=== PATIENT | male | born 1985 | race American Indian/Alaskan Native ===

== ENCOUNTER 2016-06-10 17:47 | Emergency (ER) | payer BC, OTHER ==
[2016-06-10 18:53] VITALS: BP 125/71
[2016-06-10] MEDS ORDERED: Lidocaine/EPINEPHrine/Tetracaine Soln 5 ML Each TOP ONE (20:11)
--- NOTE | 2016-06-10 20:17 | EDM.PDOC ---
ED HPI Skin/Rash - General Chief Complaint: Skin Complaint Stated Complaint: DRAIN HOSE ON ABDOMEN HAS BOIL ON IT Time Seen by Provider: 06/10/16 20:11 Source: Reports: Patient History Limitations: Reports: No limitations - History of Present Illness INITIAL COMMENTS - FREE TEXT/NARRATIVE: This 31 yo male patient reports to the ED with an abscess on his abdomen. The patient reports he has had an abscess behind his abdominal wall for which he currently has a drain in place. The patient was seen last week in the clinic and started on Metronidazole and Moxifloxacin. The patient has noticed some reduction in the size of the erythema, but the center seems to be getting more swollen and painful. Symptom Onset Date: 05/10/16 Timing: Reports: gradual onset Location, Skin: Reports: abdomen Quality: Reports: Ache, Sharp Severity: severe Known Identified Source: no Place of Occurrence: home Sick Contact: no Associated Symptoms: Reports: no other symptoms Similar Symptoms Previously: yes Recent Medical Care: yes - Related Data Allergies Allergy/AdvReac Type Severity Reaction Status Date / Time No Known Allergies Allergy Verified 06/10/16 18:46 Home Meds: Ambulatory Orders Medication Instructions Recorded Confirmed Metronidazole [IJD: metroNIDAZOLE] 500 mg PO .EVERY 8 HOURS 06/10/16 06/10/16 Moxifloxacin HCl 400 mg PO DAILY 06/10/16 06/10/16 Past Medical History - Past Health History Medical/Surgical History: Denies Medical/Surgical History HEENT History: Reports: None Cardiovascular History: Reports: None Respiratory History: Reports: None Gastrointestinal History: Reports: None Other Gastrointestinal History: abcess ABD Genitourinary History: Reports: UTI, recurrent Other Genitourinary History: patient states that he has been having this problem off and on since feb. antibiotics work temporarily but then symptoms recurr. dysuria frequency urgency hesitancy. urine is very cloudy and has a great deal of "white stuff" in it. also states that intermittently has pain in bilateral back around area of kidneys Musculoskeletal History: Reports: None Neurological History: Reports: None Psychiatric History: Reports: None Endocrine/Metabolic History: Reports: None Hematologic History: Reports: None Immunologic History: Reports: None Oncologic (Cancer) History: Reports: None Dermatologic History: Reports: None - Infectious Disease History Infectious Disease History: Reports: Chicken pox - Past Surgical History GI Surgical History: Reports: None Social & Family History - Family History Family Medical History: Noncontributory - Tobacco Use Smoking Status *Q: Current Every Day Smoker Years of Tobacco use: 16 Packs/Tins Daily: 0.5 Used Tobacco, but Quit: No Month Tobacco Last Used: march Second Hand Smoke Exposure: Yes - Caffeine Use Caffeine Use: Reports: Soda - Alcohol Use Days Per Week of Alcohol Use: 4 Number of Drinks Per Day: 7 Total Drinks Per Week: 28 - Recreational Drug Use Recreational Drug Use: Yes Drug Use in Last 12 Months: Yes Recreational Drug Type: Reports: Marijuana/Hashish Other Recreational Drug Type: Last time pot was smoked was this am. Recreational Drug Use Frequency: Daily Recreational Drug Last Use: t-1 ED ROS GENERAL - Review of Systems Review Of Systems: ROS reveals no pertinent complaints other than HPI. ED EXAM, SKIN/RASH Exam: See Below Exam Limited By: No limitations General Appearance: alert, WD/WN, moderate distress Eye Exam: bilateral eye: EOMI, normal inspection, PERRL Ears: normal external exam, normal canal, hearing grossly normal, normal TMs Nose: normal inspection, normal mucosa, no blood Throat/Mouth: Normal inspection, Normal lips, Normal teeth, Normal gums, Normal oropharynx, Normal voice, No airway compromise Head: atraumatic, normocephalic Neck: normal inspection, supple, non-tender, full range of motion Respiratory/Chest: no respiratory distress, lungs clear, normal breath sounds, no accessory muscle use, chest non-tender Cardiovascular: normal peripheral pulses, regular rate, rhythm, no edema, no gallop, no JVD, no murmur, no rub GI/Abdominal: normal bowel sounds, no organomegaly, tender (near umbilicus with erythema) (Male) Exam: Deferred Rectal (Males) Exam: Deferred Back Exam: normal inspection, full range of motion, NT Extremities: normal inspection, normal range of motion, non-tender, no pedal edema, normal capillary refill Neurological: alert, oriented, CN II-XII intact, normal cognition, normal gait, normal reflexes, no motor/sensory deficits Psychiatric: normal affect, normal mood Skin: Warm, Intact, Erythema, Increased warmth Location, Skin: abdomen Characteristics: erythematous Associated features: warmth, tenderness, swelling, induration ED SKIN PROCEDURES - I&D Site: lower abdomen Skin prep: isopropyl alcohol (alcohol) Local anesthesia: Lidocaine: 1% plain Local anesthetic volume: 2cc Area incised with: 15 blade Drainage: purulent, bloody, large amount Probed to break up loculations: No Packed with: none Sterile dressing: adhesive dressing Complications: No Course - Vital Signs Last Recorded V/S: Last Vital Signs Temp 36.2 C 06/10/16 18:48 Pulse 68 06/10/16 18:48 Resp 16 06/10/16 18:48 BP 125/71 06/10/16 18:48 Pulse Ox 96 06/10/16 18:48 - Orders/Labs/Meds Orders: Active Orders 24 hr Category Date Time Status CULTURE BLOOD [BC] Stat Lab 06/10/16 20:25 Received CULTURE BLOOD [BC] Stat Lab 06/10/16 20:33 Received Lidocaine 1% [Xylocaine-MPF 1%] Med 06/10/16 21:21 Once 30 ml INJECT ONETIME ONE Blood Culture x2 Reflex Set [OM.PC] Stat Oth 06/10/16 20:16 Ordered Labs: Laboratory Tests 06/10/16 06/10/16 06/10/16 Range/Units 20:25 20:25 20:25 WBC 13.0 H (5.0-10.0) 10^3/uL RBC 4.44 L (4.6-6.2) 10^6/uL Hgb 15.1 (14.0-18.0) g/dL Hct 46.1 (40.0-54.0) % MCV 103.8 H (80-100) fL MCH 34.0 (27.0-34.0) pg MCHC 32.8 L (33.0-35.0) g/dL Plt Count 361 (150-450) 10^3/uL Neut % (Auto) 75.7 H (42.2-75.2) % Lymph % (Auto) 11.1 L (20.5-50.1) % [place] % (Auto) 8.9 H (2-8) % Eos % (Auto) 3.9 H (1.0-3.0) % Baso % (Auto) 0.4 (0.0-1.0) % Sodium 137 (135-145) mmol/L Potassium 4.0 (3.6-5.0) mmol/L Chloride 100 L (101-111) mmol/L Carbon Dioxide 27.0 (21.0-31.0) mmol/L Anion Gap 14.0 BUN 8 (7-18) mg/dL Creatinine 0.7 (0.6-1.3) mg/dL Est Cr Clr Drug Dosing TNP Estimated GFR (MDRD) > 60 BUN/Creatinine Ratio 11.42 Glucose 92 (74-105) mg/dL Lactic Acid 0.7 (0.5-2.2) mmol/L Calcium 8.9 (8.4-10.2) mg/dl Total Bilirubin 0.7 (0.2-1.0) mg/dL AST 23 (10-42) IU/L ALT 16 (10-60) IU/L Alkaline Phosphatase 89 (42-121) IU/L Total Protein 8.0 (6.7-8.2) g/dl Albumin 3.5 (3.2-5.5) g/dl Globulin 4.5 Albumin/Globulin Ratio 0.78 Meds: Medications Discontinued Medications Generic Name Dose Route Start Last Admin Trade Name Antonio PRN Reason Stop Dose Admin Lidocaine HCl Confirm 06/10/16 21:14 Xylocaine-Mpf 1% Administered 06/10/16 21:15 Dose 30 ml .ROUTE .STK-MED ONE Lidocaine/Tetracaine 5 ml 06/10/16 20:11 06/10/16 20:24 Let Soln TOP 06/10/16 20:12 5 ml ONETIME ONE Administration Departure - Departure Time of Disposition: 21:23 Disposition: Home, Self-Care 01 Condition: fair Clinical Impression: Abscess Instructions: Abscess Forms: ED Department Discharge Care Plan Goals: The patient was advised of the examination and lab results during the visit. The patient's abscess was incised and drained to reduce pressure. A sample of the drainage was sent to lab for further analysis. The patient was encouraged to follow-up with his primary care facility on Saturday for continued evaluation and further management. The patient was given a dose of [place] ([address]25) while in the ED. The patient was encouraged to continue on his current antibiotics as prescribed. If the patient has any additional symptoms or further concerns, the patient should either visit his primary care facility or return to the emergency department. - My Orders Last 24 Hours: My Active Orders 06/10/16 20:16 Blood Culture x2 Reflex Set [OM.PC] Stat 06/10/16 20:25 CULTURE BLOOD [BC] Stat 06/10/16 20:33 CULTURE BLOOD [BC] Stat 06/10/16 21:21 Lidocaine 1% [Xylocaine-MPF 1%] 30 ml INJECT ONETIME ONE - Assessment/Plan Last 24 Hours: My Active Orders 06/10/16 20:16 Blood Culture x2 Reflex Set [OM.PC] Stat 06/10/16 20:25 CULTURE BLOOD [BC] Stat 06/10/16 20:33 CULTURE BLOOD [BC] Stat 06/10/16 21:21 Lidocaine 1% [Xylocaine-MPF 1%] 30 ml INJECT ONETIME ONE
[2016-06-10 21:08] LABS: CHLORIDE,CL 100 mmol/L (101-111); SODIUM,NA 137 mmol/L (135-145)
[2016-06-10] MEDS ORDERED: Lidocaine 1% 30 ML SDV ONE (21:14)
[2016-06-10] MEDS ORDERED: Lidocaine 1% 30 ML SDV INJECT ONE (21:21)
[2016-06-10] MEDS ORDERED: Acetaminophen/HYDROcodone 325-10 MG Tab PO ONE (21:23)
== END 2016-06-10 21:35 | disposition home or self-care (01) ==
LOC: DL.ED 17:47
DX: L02.211 Cutaneous abscess of abdominal wall (principal); Z87.440 Personal history of urinary (tract) infections; F17.210 Nicotine dependence, cigarettes, uncomplicated
CPT/HCPCS: 10060; 36415; 80053; 83605; 85025; 87040; 87070; 99284; A9270

== ENCOUNTER 2016-11-21 08:04 | Day surgery (SDC) | payer BC, OTHER ==
[2016-11-21] MEDS ORDERED: fentaNYL 100 MCG/2 ML SDV IV ONE (08:05)
[2016-11-21] MEDS ORDERED: Lidocaine 1% 30 ML SDV INJECT ONE ×2 (08:05→10:23)
[2016-11-21] MEDS ORDERED: Midazolam 1 MG/ML 2 ML SDV IV ONE (08:05)
[2016-11-21] MEDS ORDERED: Propofol 200 MG/20 ML SDV IV ONE (08:05)
[2016-11-21] MEDS ORDERED: Lactated Ringers 1,000 ML IV SCH (08:45)
[2016-11-21] MEDS ORDERED: Lidocaine 1% 30 ML SDV ONE (09:18)
--- NOTE | 2016-11-21 10:06 | PCM.SN ---
- Free Text/Narrative Note: 11/21/16 1000 preop patients history and physical reviewed along with allergies and medications no history of complications with anesthesia heart regular rhythm lungs clear smoker npo 8 hrs mallampati 2 asa 1 plan local with iv sedation this along with risks goals alternatives explained to patient and accepted
--- NOTE | 2016-11-21 11:14 | PCM.SN ---
- Free Text/Narrative Note: 11/21/16 1115 postop patient recovered well from iv sedation eating drinking no complaints or apparent complications with anesthesia
[2016-11-21 12:28] VITALS: BP 131/77
--- NOTE | 2016-11-21 15:03 | OR ---
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 He has a chronic draining wound in the lower portion of his lower abdominal incision, and CT scan shows a large collection of fluid most consistent with abscess. He has elevated white blood cell count to 12,000. PREOPERATIVE DIAGNOSES: Wound infection, abdominal subcutaneous abscess. POSTOPERATIVE DIAGNOSES: Wound infection, abdominal subcutaneous abscess PROCEDURE: Incision and drainage of subcutaneous abdominal wound. ANESTHESIA: Local plus MAC. SPECIMEN: Cultures for anaerobic and aerobic. PROCEDURE: After adequate preparation, lidocaine was used to infiltrate the lower portion of the abdominal incision below the umbilicus. The skin was opened and taken down through the subcutaneous tissue. Then was able to pop into a fluid collection. It appeared to be somewhat murky, but not purulent abscess. Cultures of the cavity were taken, and the wound was packed with a two dry 4 x 4 gauze pads. The wound was left open and will change the packing and let this heal by secondary intention. Cultures are pending. The patient was taken to recovery room. [facility] /[id number]
== END 2016-11-21 11:40 | disposition home or self-care (01) ==
LOC: DL.SDS 08:04 → EDSTATUS 09:30 → DL.SDS 11:40
PROVIDERS: ATTEND Surgery
DX: L02.211 Cutaneous abscess of abdominal wall (principal); F17.200 Nicotine dependence, unspecified, uncomplicated; Z90.49 Acquired absence of other specified parts of digestive tract
CPT/HCPCS: 10060; 87070; 87075; J2250; J2704; J3010; J7120

== ENCOUNTER 2021-01-09 19:42 | Observation (INO) | payer MEDICAID, OTHER ==
--- NOTE | 2021-01-09 20:03 | EDM.PDOC ---
ED HPI GENERAL MEDICAL PROBLEM - General Stated Complaint: DIZZY SPELLS, TROUBLE STANDING Time Seen by Provider: 01/09/21 19:55 Source of Information: Reports: Patient, Old Records, RN, RN Notes Reviewed History Limitations: Reports: No Limitations - History of Present Illness INITIAL COMMENTS - FREE TEXT/NARRATIVE: Alejandro is a 35 y/o male who presents to the ED via personal vehicle with complaints of dizziness, vomiting, and shortness of breath. The patient reports his symptoms began four days ago and have waxes and waned in severity over that time. The patient states he notes the dizziness is most prominent with gross position changes, however he has experienced some episodes while up walking. He denies loss of consciousness and has not fallen/struck his head. He denies any recent illness, fever, shaking chills, cough, sore throat, chest pain/pressure, palpitations, abdominal pain, dyspepsia, dysuria, hematuria, hematochezia, or melena. He attest to drinking one pint of Fireball liquor 3-4x per week, smokes 1/2 pack of cigarettes per day, and smokes marijuana every day. The patient has received two COVID vaccine doses. - Related Data Allergies Allergy/AdvReac Type Severity Reaction Status Date / Time No Known Allergies Allergy Verified 01/09/21 19:57 Home Meds: Home Meds . [No Known Home Meds] 11/05/17 [History] Past Medical History - Past Health History Medical/Surgical History: Denies Medical/Surgical History HEENT History: Reports: None Cardiovascular History: Reports: None Respiratory History: Reports: None Gastrointestinal History: Reports: Diverticulosis, Other (See Below) Other Gastrointestinal History: abcess ABD. S/P DIVERTICULITIS Genitourinary History: Reports: UTI, Recurrent Other Genitourinary History: patient states that he has been having this problem off and on since feb. antibiotics work temporarily but then symptoms recurr. dysuria frequency urgency hesitancy. urine is very cloudy and has a great deal of "white stuff" in it. also states that intermittently has pain in bilateral back around area of kidneys Musculoskeletal History: Reports: None Neurological History: Reports: None Psychiatric History: Reports: None Endocrine/Metabolic History: Reports: None Hematologic History: Reports: None Immunologic History: Reports: None Oncologic (Cancer) History: Reports: None Dermatologic History: Reports: Other (See Below) Other Dermatologic History: drng wound at present - Infectious Disease History Infectious Disease History: Reports: Chicken Pox - Past Surgical History HEENT Surgical History: Reports: None Respiratory Surgical History: Reports: None GI Surgical History: Reports: None, Other (See Below) Other GI Surgeries/Procedures: S/P COLECTOMY FOR DIVERTICULITIS @ [facility] Other Male Surgeries/Procedures: S/P CYSTOURETHROSCOPY 06/2016 Musculoskeletal Surgical History: Reports: Other (See Below) Other Musculoskeletal Surgeries/Procedures:: left wrist fracture Social & Family History - Family History Family Medical History: No Pertinent Family History - Caffeine Use Caffeine Use: Reports: Soda ED ROS GENERAL - Review of Systems Review Of Systems: Comprehensive ROS is negative, except as noted in HPI. ED EXAM, GENERAL - Physical Exam Exam: See Below Exam Limited By: No Limitations General Appearance: Alert, No Apparent Distress, Other (Ill-appearing adult male) Eye Exam: Bilateral Eye: EOMI, Normal Inspection, PERRL (3mm) Ear Exam: Bilateral Ear: Auricle Normal, Canal Normal, TM Dull Nose: Normal Inspection, Normal Mucosa, No Blood Throat/Mouth: Normal Inspection, Normal Oropharynx, Normal Voice, No Airway Compromise. No: Normal Teeth (Poor dentition) Head: Atraumatic, Normocephalic Neck: Normal Inspection, Supple, Non-Tender, Full Range of Motion. No: Lymphadenopathy (L), Lymphadenopathy (R) Respiratory/Chest: No Respiratory Distress, No Accessory Muscle Use, Rhonchi (Diffuse to lungs). No: Crackles, Rales, Wheezing, Stridor Cardiovascular: Normal Peripheral Pulses, Regular Rate, Rhythm, No Edema, No Gallop, No JVD, No Murmur, No Rub Peripheral Pulses: 2+: Radial (L), Radial (R) GI/Abdominal: Normal Bowel Sounds, Soft, Non-Tender, No Distention, No Abnormal Bruit, Pelvis Stable, Hernia (Umbilical) (Male) Exam: Deferred Rectal (Males) Exam: Deferred Back Exam: Normal Inspection, Full Range of Motion Extremities: Normal Inspection, Normal Range of Motion, Non-Tender, No Pedal Edema, Normal Capillary Refill Neurological: Alert, Oriented, CN II-XII Intact, Normal Cognition, Normal Gait, No Motor/Sensory Deficits Psychiatric: Normal Affect, Normal Mood Skin Exam: Warm, Dry, Intact, No Rash, Pallor. No: Cyanosis, Jaundice, Mottled #1 Interpretation EKG Date: 01/09/21 Time: 19:50 Rhythm: NSR Rate (Beats/Min): 91 [place]: Normal P-Wave: Present QRS: Normal ST-T: Normal QT: Normal IN/PQ Interval: 0.13 Comparison: NA - No Prior EKG EKG Interpretation Comments: NSR; No evidence of acute myocardial ischemia Course - Vital Signs Last Recorded V/S: Last Vital Signs Temp 98.8 F 01/09/21 22:41 Pulse 74 01/09/21 22:41 Resp 16 01/09/21 22:41 BP 107/57 L 01/09/21 22:41 Pulse Ox 98 01/09/21 19:57 - Orders/Labs/Meds Orders: Active Orders 24 hr Category Date Time Status Admission Diagnosis [ADT] Stat ADT 01/09/21 22:56 Ordered Admission Status [Patient Status] [ADT] Routine ADT 01/09/21 22:56 Active Verify Patient Consent Obtain [RC] ASDIRECTED Care 01/09/21 20:59 Active DRUG SCREEN URINE BIORAD [URCHEM] Urgent Lab 01/09/21 19:54 Ordered RED BLOOD CELLS LP [BBK] Stat Lab 01/09/21 20:05 Results TYPE AND SCREEN [BBK] Stat Lab 01/09/21 20:05 Results UA RFX FRANCES AND CULT IF INDIC [URIN] Stat Lab 01/09/21 19:54 Ordered Magnesium Sulfate/Water [Magnesium Sulfate in Water 2 Med 01/09/21 21:21 Active GM/50 ML] 2 gm Premix Bag 1 bag IV ONETIME Transfuse Red Blood Cells [COMM] Stat Oth 01/09/21 20:59 Ordered Medication Orders Magnesium Sulfate 2 gm/ Premix 50 mls @ 25 mls/hr IV ONETIME ONE Stop: 01/09/21 23:20 Last Admin: 01/09/21 22:03 Dose: 25 mls/hr Documented by: VIPUL Labs: Laboratory Tests 01/09/21 01/09/21 01/09/21 Range/Units 19:57 20:05 20:05 WBC 8.5 (5.0-10.0) 10^3/uL RBC 1.49 L (4.6-6.2) 10^6/uL Hgb 6.0 L* D (14.0-18.0) g/dL Hct 17.8 L* (40.0-54.0) % MCV 119.5 H D (80-100) fL MCH 40.3 H (27.0-34.0) pg MCHC 33.7 (33.0-35.0) g/dL Plt Count 325 (150-450) 10^3/uL Neut % (Auto) 74.6 (42.2-75.2) % Lymph % (Auto) 17.5 L (20.5-50.1) % [place] % (Auto) 4.7 (2-8) % Eos % (Auto) 2.6 (1.0-3.0) % Baso % (Auto) 0.6 (0.0-1.0) % Sodium 139 (136-145) mmol/L Potassium 3.9 (3.5-5.1) mmol/L Chloride 101 (98-107) mmol/L Carbon Dioxide 27 (21-32) mmol/L Anion Gap 14.9 H (7-13) mEq/L BUN 10 (7-18) mg/dL Creatinine 0.95 (0.70-1.30) mg/dL Est Cr Clr Drug Dosing 128.48 mL/min Estimated GFR (MDRD) > 60 BUN/Creatinine Ratio 10.5 (No establ ref range) Glucose 119 H (70-99) mg/dL Lactic Acid (0.4-2.0) mmol/L Calcium 8.7 (8.5-10.1) mg/dL Magnesium 1.5 L (1.8-2.4) mg/dL Total Bilirubin 1.5 H (0.2-1.0) mg/dL AST 79 H (15-37) U/L ALT 52 (16-63) U/L Alkaline Phosphatase 78 (46-116) U/L Ammonia (11-32) umol/L Troponin I High Sens 6 (<=76) pg/mL C-Reactive Protein 2.9 H (0.0-0.9) mg/dL B-Natriuretic Peptide 111 H (0-100) pg/ml Total Protein 7.4 (6.4-8.2) g/dL Albumin 3.3 L (3.4-5.0) g/dL Globulin 4.1 Albumin/Globulin Ratio 0.80 Amylase 34 (25-115) U/L Lipase 131 (73-393) U/L Ethyl Alcohol < 3 (0) mg/dL Influenza Type A RNA Negative (NEGATIVE) Influenza Type B RNA Negative (NEGATIVE) SARS-CoV-2 RNA (JEN) Negative (NEGATIVE) Blood Type Gel Antibody Screen Crossmatch 01/09/21 01/09/21 01/09/21 Range/Units 20:05 20:05 20:05 WBC (5.0-10.0) 10^3/uL RBC (4.6-6.2) 10^6/uL Hgb (14.0-18.0) g/dL Hct (40.0-54.0) % MCV (80-100) fL MCH (27.0-34.0) pg MCHC (33.0-35.0) g/dL Plt Count (150-450) 10^3/uL Neut % (Auto) (42.2-75.2) % Lymph % (Auto) (20.5-50.1) % [place] % (Auto) (2-8) % Eos % (Auto) (1.0-3.0) % Baso % (Auto) (0.0-1.0) % Sodium (136-145) mmol/L Potassium (3.5-5.1) mmol/L Chloride (98-107) mmol/L Carbon Dioxide (21-32) mmol/L Anion Gap (7-13) mEq/L BUN (7-18) mg/dL Creatinine (0.70-1.30) mg/dL Est Cr Clr Drug Dosing mL/min Estimated GFR (MDRD) BUN/Creatinine Ratio (No establ ref range) Glucose (70-99) mg/dL Lactic Acid 1.9 (0.4-2.0) mmol/L Calcium (8.5-10.1) mg/dL Magnesium (1.8-2.4) mg/dL Total Bilirubin (0.2-1.0) mg/dL AST (15-37) U/L ALT (16-63) U/L Alkaline Phosphatase (46-116) U/L Ammonia 18 (11-32) umol/L Troponin I High Sens (<=76) pg/mL C-Reactive Protein (0.0-0.9) mg/dL B-Natriuretic Peptide (0-100) pg/ml Total Protein (6.4-8.2) g/dL Albumin (3.4-5.0) g/dL Globulin Albumin/Globulin Ratio Amylase (25-115) U/L Lipase (73-393) U/L Ethyl Alcohol (0) mg/dL Influenza Type A RNA (NEGATIVE) Influenza Type B RNA (NEGATIVE) SARS-CoV-2 RNA (JEN) (NEGATIVE) Blood Type O POSITIVE Gel Antibody Screen Negative Crossmatch See Detail Meds: Medications Generic Name Dose Route Start Last Admin Trade Name Freq PRN Reason Stop Dose Admin Magnesium Sulfate 2 gm/ Premix 50 mls @ 25 mls/hr 01/09/21 21:21 01/09/21 22:03 IV 01/09/21 23:20 25 mls/hr ONETIME ONE Administration Discontinued Medications Generic Name Dose Route Start Last Admin Trade Name Freq PRN Reason Stop Dose Admin Iopamidol 50 ml 01/09/21 21:07 01/09/21 21:22 Iopamidol 612 Mg/Ml 50 Ml Sdv IVPUSH 01/09/21 21:08 25 ml ONETIME ONE Administration Iopamidol 100 ml 01/09/21 21:07 01/09/21 21:22 Iopamidol 612 Mg/Ml 100 Ml Bottle IVPUSH 01/09/21 21:08 100 ml ONETIME ONE Administration - Re-Assessments/Exams Free Text/Narrative Re-Assessment/Exam: 01/09/21 23:18 Given low Hgb, will obtain CT chest/abdomen/pelvis Findings of examination and lab work reviewed with patient. Discussed regrading need for transfusion; patient verbalized understanding and consent. Type and screen obtained. Will transfuse 2 units PRBCs. Findings of imaging reviewed with patient. Hemeoccult negative. Case discussed with Dr. Myers who kindly accepted patient for observation for anemia. Patient verbalized understanding and agreement with the plan of care. Departure - Departure Time of Disposition: 23:17 Disposition: Refer to Observation Condition: Fair Clinical Impression: Macrocytic anemia, Hypomagnesemia, Bronchitis - Discharge Information Forms: ED Department Discharge Sepsis Event Note (ED) - Focused Exam Vital Signs: Vital Signs Temp Temp Pulse Resp BP Pulse Ox 01/09/21 22:41 98.8 F 74 16 107/57 L 01/09/21 22:25 99.1 F 16 120/67 01/09/21 22:12 99.1 F 85 16 112/65 01/09/21 20:45 99.3 F 73 16 106/64 01/09/21 20:10 117 H 100/60 01/09/21 20:08 86 112/65 01/09/21 20:06 94 120/69 01/09/21 19:57 98.1 F 96 16 121/79 98 - My Orders Last 24 Hours: My Active Orders 01/09/21 19:54 DRUG SCREEN URINE BIORAD [URCHEM] Urgent UA RFX FRANCES AND CULT IF INDIC [URIN] Stat 01/09/21 20:05 RED BLOOD CELLS LP [BBK] Stat TYPE AND SCREEN [BBK] Stat 01/09/21 20:59 Verify Patient Consent Obtain [RC] ASDIRECTED Transfuse Red Blood Cells [COMM] Stat 01/09/21 21:21 Magnesium Sulfate/Water [Magnesium Sulfate in Water 2 GM/50 ML] 2 gm Premix Bag 1 bag IV ONETIME 01/09/21 22:56 Admission Diagnosis [ADT] Stat Admission Status [Patient Status] [ADT] Routine - Assessment/Plan Last 24 Hours: My Active Orders 01/09/21 19:54 DRUG SCREEN URINE BIORAD [URCHEM] Urgent UA RFX FRANCES AND CULT IF INDIC [URIN] Stat 01/09/21 20:05 RED BLOOD CELLS LP [BBK] Stat TYPE AND SCREEN [BBK] Stat 01/09/21 20:59 Verify Patient Consent Obtain [RC] ASDIRECTED Transfuse Red Blood Cells [COMM] Stat 01/09/21 21:21 Magnesium Sulfate/Water [Magnesium Sulfate in Water 2 GM/50 ML] 2 gm Premix Bag 1 bag IV ONETIME 01/09/21 22:56 Admission Diagnosis [ADT] Stat Admission Status [Patient Status] [ADT] Routine
[2021-01-09 20:36] LABS: ANION GAP 14.9 mEq/L (7-13); CHLORIDE,CL 101 mmol/L (98-107); SODIUM,NA 139 mmol/L (136-145)
[2021-01-09 20:37] LABS: CORONAVIRUS COVID-19 NAA NEGATIVE (NEGATIVE)
[2021-01-09] MEDS ORDERED: Iopamidol 612 MG/ML 100 ML Bottle IVPUSH ONE (21:07)
[2021-01-09] MEDS ORDERED: Iopamidol 612 MG/ML 50 ML SDV IVPUSH ONE (21:07)
[2021-01-09] MEDS ORDERED: Magnesium Sulfate/Water 2 GM in Premix Bag 1 BAG IV ONE (21:21)
--- NOTE | 2021-01-09 22:00 | CT ---
PROCEDURE INFORMATION: Exam: CT Chest With Contrast; Diagnostic Exam date and time: 01/09/2021 9:08 PM Age: 35 years old Clinical indication: Other: Hgb 6; Ronchi diffuse to lung muhammad, dizzy; Prior surgery; Surgery date: 6+ months; Surgery type: Colon surgery 4 years ago, diverticulitis TECHNIQUE: Imaging protocol: Diagnostic computed tomography of the chest with contrast. Total images: 371 Radiation optimization: All CT scans at this facility use at least one of these dose optimization techniques: automated exposure control; mA and/or kV adjustment per patient size (includes targeted exams where dose is matched to clinical indication); or iterative reconstruction. Contrast material: ISOVUE 300; Contrast volume: 125 ml; Contrast route: INTRAVENOUS (IV); COMPARISON: CT Abdomen Pelvis w Cont 11/20/2016 10:03 AM FINDINGS: Thyroid: The visualized thyroid gland is unremarkable. Lungs: Mild bilateral bronchial wall thickening suggesting an element of bronchitis or bronchial edema, with no evidence of bronchiectasis or bronchial occlusions. No pulmonary mass lesions are identified. Pleural spaces: No pleural effusions. No pneumothorax. Heart: Heart size normal. Mediastinal space: The esophagus is largely contracted without gross abnormality. Pulmonary arteries: The pulmonary arteries demonstrate no gross abnormality. Aorta: The aorta is unremarkable. No mediastinal hematoma. Lymph nodes: No supraclavicular or axillary adenopathy. No mediastinal or hilar adenopathy. Bones/joints: No acute osseous abnormalities are identified. Soft tissues: Mild bilateral symmetrical gynecomastia noted. Other findings: No infiltrates or edema. IMPRESSION: 1. Mild bilateral bronchial wall thickening suggesting an element of bronchitis or bronchial edema. No gross pulmonary infiltrates or edema pattern. 2. Mild bilateral symmetrical gynecomastia noted. PROCEDURE INFORMATION: Exam: CT Abdomen And Pelvis With Contrast Exam date and time: 01/09/2021 9:08 PM Age: 35 years old Clinical indication: Other: Hgb 6; Ronchi diffuse to lung muhammad, dizzy; Prior surgery; Surgery date: 6+ months; Surgery type: Colon surgery 4 years ago, diverticulitis TECHNIQUE: Imaging protocol: Computed tomography of the abdomen and pelvis with contrast. Radiation optimization: All CT scans at this facility use at least one of these dose optimization techniques: automated exposure control; mA and/or kV adjustment per patient size (includes targeted exams where dose is matched to clinical indication); or iterative reconstruction. Contrast material: ISOVUE 300; Contrast volume: 125 ml; Contrast route: INTRAVENOUS (IV); COMPARISON: CT Abdomen Pelvis w Cont 11/20/2016 10:03 AM FINDINGS: Mediastinal space: The visualized distal esophagus is largely contracted without gross abnormality. Liver: Slightly irregular liver contour, possible early changes of cirrhosis. Borderline hepatomegaly measuring 19 cm craniocaudal. No mass lesions. No intrahepatic biliary ductal dilatation. Gallbladder and bile ducts: Normal. No calcified stones. No ductal dilation. Pancreas: Normal. No inflammatory changes or ductal dilation. Spleen: Moderate splenomegaly measuring 16.9 cm craniocaudal. No focal splenic lesions. Adrenal glands: Normal. No adrenal mass. Kidneys and ureters: No acute abnormalities. No hydronephrosis or hydroureter. No urinary tract stones are identified. Stomach and bowel: The stomach is largely contracted without gross abnormality. The small bowel is nondilated with no gross abnormality. Sigmoid anastomosis without gross anastomotic complication. No acute colonic abnormalities. Appendix: The appendix is normal in caliber and demonstrates no evidence of appendicitis. Intraperitoneal space: No free fluid or air. Vasculature: No acute process. No abdominal aortic aneurysm. Mild dilatation of the main portal vein measuring 17 mm diameter. Lymph nodes: Slightly enlarged celiac node measuring 11 mm short axis. Slightly enlarged portacaval node measuring 15 mm short axis. These are nonspecific. Urinary bladder: Urinary bladder it is largely contracted. There is moderate perivesicular stranding suspicious for possible cystitis, correlate with UA. Reproductive: Prostate is unremarkable. There is mild haziness around the seminal vesicles, possibly reactive changes due to nearby cystitis or an element of seminal vesiculitis. No abscess. Bones/joints: No acute osseous abnormalities. Soft tissues: Moderate-sized anterior abdominal wall fatty hernia which is new since 11/20/2016, with the midline fascial defect measuring about 3.5 cm transverse on series 2, image 76. No evidence of bowel herniation or strangulation. IMPRESSION: 1. Bladder wall thickening with moderate perivesicular stranding suspicious for cystitis, correlate with UA. There is also mild haziness around the seminal vesicles which may represent reactive local changes from cystitis, or possibly an element of seminal vesiculitis. No abscess. 2. Question mild liver contour irregularity suspicious for early changes of cirrhosis. Borderline hepatomegaly. 3. Moderate splenomegaly and mild dilatation of the main portal vein suspicious for portal hypertension. No gross portosystemic shunting. 4. Anterior abdominal wall fatty hernia without evidence of bowel herniation or strangulation. 5. Slightly enlarged celiac and portacaval nodes, nonspecific. 6. Additional nonemergent findings detailed above.
--- NOTE | 2021-01-09 23:54 | PCM.HP ---
H&P History of Present Illness - General Date of Service: 01/09/21 Admit Problem/Dx: Admission Diagnosis/Problem Admission Diagnosis/Problem Anemia Source of Information: Patient - History of Present Illness Initial Comments - Free Text/Narative: 35 yo with h/o major abdominal surgery following diverticulitis with bladder fistula presented with weakness, lightheadedness for 5 days duration, worse when gettingup, better with rest, associatd with sob, near syncope has h/o "heartburn" taking rollaids prn for years no black/bloody/white BM had bilious vomit x 1, no bloody, black vomitus no fever, no chills - Related Data Allergies/Adverse Reactions: Allergies Allergy/AdvReac Type Severity Reaction Status Date / Time No Known Allergies Allergy Verified 01/09/21 23:28 Home Medications: Home Meds . [No Known Home Meds] 11/05/17 [History] Past Medical History - Past Health History Medical/Surgical History: Denies Medical/Surgical History HEENT History: Reports: None Cardiovascular History: Reports: None Respiratory History: Reports: None Gastrointestinal History: Reports: Diverticulosis, Other (See Below) Other Gastrointestinal History: abcess ABD. S/P DIVERTICULITIS Genitourinary History: Reports: UTI, Recurrent Other Genitourinary History: patient states that he has been having this problem off and on since feb. antibiotics work temporarily but then symptoms recurr. dysuria frequency urgency hesitancy. urine is very cloudy and has a great deal of "white stuff" in it. also states that intermittently has pain in bilateral back around area of kidneys Musculoskeletal History: Reports: None Neurological History: Reports: None Psychiatric History: Reports: None Endocrine/Metabolic History: Reports: None Hematologic History: Reports: None Immunologic History: Reports: None Oncologic (Cancer) History: Reports: None Dermatologic History: Reports: Other (See Below) Other Dermatologic History: drng wound at present - Infectious Disease History Infectious Disease History: Reports: Chicken Pox - Past Surgical History HEENT Surgical History: Reports: None Respiratory Surgical History: Reports: None GI Surgical History: Reports: None, Other (See Below) Other GI Surgeries/Procedures: S/P COLECTOMY FOR DIVERTICULITIS @ [facility] Other Male Surgeries/Procedures: S/P CYSTOURETHROSCOPY 06/2016 Musculoskeletal Surgical History: Reports: Other (See Below) Other Musculoskeletal Surgeries/Procedures:: left wrist fracture Social & Family History - Family History Family Medical History: No Pertinent Family History - Tobacco Use Tobacco Use Status *Q: Current Every Day Tobacco User Years of Tobacco use: 20 Packs/Tins Daily: 0.5 Used Tobacco, but Quit: No Second Hand Smoke Exposure: No - Caffeine Use Caffeine Use: Reports: None - Alcohol Use Days Per Week of Alcohol Use: 4 Number of Drinks Per Day: 7 Total Drinks Per Week: 28 Date of Last Drink: 01/06/21 Time of Last Drink: 20:00 - Recreational Drug Use Recreational Drug Use: Yes Drug Use in Last 12 Months: Yes Recreational Drug Type: Reports: Marijuana/Hashish Recreational Drug Use Frequency: Daily H&P Review of Systems - Review of Systems: Review Of Systems: See Below General: Reports: Malaise, Weakness. Denies: Fever Pulmonary: Reports: Shortness of Breath. Denies: Wheezing Cardiovascular: Reports: Dyspnea on Exertion, Other (near syncope, lightheadedness). Denies: Chest Pain Gastrointestinal: Reports: Other ("HEARTBURN") Genitourinary: Denies: Dysuria Psychiatric: Denies: Confusion Neurological: Reports: Dizziness Hematologic/Lymphatic: Reports: Anemia Exam - Exam Exam: See Below - Vital Signs Vital Signs: Last Vital Signs Temp 98.7 F 01/09/21 23:23 Pulse 72 01/09/21 23:23 Resp 20 01/09/21 23:23 BP 136/63 01/09/21 23:23 Pulse Ox 100 01/09/21 23:23 Weight: 270 lb 3.2 oz - Exam General: Alert, Oriented Neck: Supple Lungs: Clear to Auscultation, Normal Respiratory Effort Cardiovascular: Regular Rate, Regular Rhythm GI/Abdominal Exam: Normal Bowel Sounds, Soft, Non-Tender, Other (obese) Extremities: No Pedal Edema Neuro Extensive - Mental Status: Alert, Oriented x3, Normal Mood/Affect Psychiatric: Alert, Normal Affect, Normal Mood - Patient Data Lab Results Last 24 hrs: Laboratory Results - last 24 hr 01/09/21 01/09/21 01/09/21 Range/Units 19:57 20:05 20:05 WBC 8.5 (5.0-10.0) 10^3/uL RBC 1.49 L (4.6-6.2) 10^6/uL Hgb 6.0 L* D (14.0-18.0) g/dL Hct 17.8 L* (40.0-54.0) % MCV 119.5 H D (80-100) fL MCH 40.3 H (27.0-34.0) pg MCHC 33.7 (33.0-35.0) g/dL Plt Count 325 (150-450) 10^3/uL Neut % (Auto) 74.6 (42.2-75.2) % Lymph % (Auto) 17.5 L (20.5-50.1) % Navarro % (Auto) 4.7 (2-8) % Eos % (Auto) 2.6 (1.0-3.0) % Baso % (Auto) 0.6 (0.0-1.0) % Sodium 139 (136-145) mmol/L Potassium 3.9 (3.5-5.1) mmol/L Chloride 101 (98-107) mmol/L Carbon Dioxide 27 (21-32) mmol/L Anion Gap 14.9 H (7-13) mEq/L BUN 10 (7-18) mg/dL Creatinine 0.95 (0.70-1.30) mg/dL Est Cr Clr Drug Dosing 128.48 mL/min Estimated GFR (MDRD) > 60 BUN/Creatinine Ratio 10.5 (No establ ref range) Glucose 119 H (70-99) mg/dL Lactic Acid (0.4-2.0) mmol/L Calcium 8.7 (8.5-10.1) mg/dL Magnesium 1.5 L (1.8-2.4) mg/dL Total Bilirubin 1.5 H (0.2-1.0) mg/dL AST 79 H (15-37) U/L ALT 52 (16-63) U/L Alkaline Phosphatase 78 (46-116) U/L Ammonia (11-32) umol/L Troponin I High Sens 6 (<=76) pg/mL C-Reactive Protein 2.9 H (0.0-0.9) mg/dL B-Natriuretic Peptide 111 H (0-100) pg/ml Total Protein 7.4 (6.4-8.2) g/dL Albumin 3.3 L (3.4-5.0) g/dL Globulin 4.1 Albumin/Globulin Ratio 0.80 Amylase 34 (25-115) U/L Lipase 131 (73-393) U/L Ethyl Alcohol < 3 (0) mg/dL Influenza Type A RNA Negative (NEGATIVE) Influenza Type B RNA Negative (NEGATIVE) SARS-CoV-2 RNA (JEN) Negative (NEGATIVE) Blood Type Gel Antibody Screen Crossmatch 01/09/21 01/09/21 01/09/21 Range/Units 20:05 20:05 20:05 WBC (5.0-10.0) 10^3/uL RBC (4.6-6.2) 10^6/uL Hgb (14.0-18.0) g/dL Hct (40.0-54.0) % MCV (80-100) fL MCH (27.0-34.0) pg MCHC (33.0-35.0) g/dL Plt Count (150-450) 10^3/uL Neut % (Auto) (42.2-75.2) % Lymph % (Auto) (20.5-50.1) % Navarro % (Auto) (2-8) % Eos % (Auto) (1.0-3.0) % Baso % (Auto) (0.0-1.0) % Sodium (136-145) mmol/L Potassium (3.5-5.1) mmol/L Chloride (98-107) mmol/L Carbon Dioxide (21-32) mmol/L Anion Gap (7-13) mEq/L BUN (7-18) mg/dL Creatinine (0.70-1.30) mg/dL Est Cr Clr Drug Dosing mL/min Estimated GFR (MDRD) BUN/Creatinine Ratio (No establ ref range) Glucose (70-99) mg/dL Lactic Acid 1.9 (0.4-2.0) mmol/L Calcium (8.5-10.1) mg/dL Magnesium (1.8-2.4) mg/dL Total Bilirubin (0.2-1.0) mg/dL AST (15-37) U/L ALT (16-63) U/L Alkaline Phosphatase (46-116) U/L Ammonia 18 (11-32) umol/L Troponin I High Sens (<=76) pg/mL C-Reactive Protein (0.0-0.9) mg/dL B-Natriuretic Peptide (0-100) pg/ml Total Protein (6.4-8.2) g/dL Albumin (3.4-5.0) g/dL Globulin Albumin/Globulin Ratio Amylase (25-115) U/L Lipase (73-393) U/L Ethyl Alcohol (0) mg/dL Influenza Type A RNA (NEGATIVE) Influenza Type B RNA (NEGATIVE) SARS-CoV-2 RNA (JEN) (NEGATIVE) Blood Type O POSITIVE Gel Antibody Screen Negative Crossmatch See Detail Result Diagrams: 01/09/21 20:05 01/09/21 20:05 Jose Results Last 24 hrs: Microbiology 01/09/21 22:25 Stool Occult Blood (JOSE) - Final Stool / Feces NEGATIVE OCCULT BLOOD REFERENCE RANGE: NEGATIVE - Problem List (1) Near syncope SNOMED Code(s): 946875453 ICD Code: R55 - SYNCOPE AND COLLAPSE Status: Acute Current Visit: Yes (2) Orthostatic hypotension SNOMED Code(s): 69901122 ICD Code: I95.1 - ORTHOSTATIC HYPOTENSION Status: Acute Current Visit: Yes (3) Orthostatic dizziness SNOMED Code(s): 453327621 ICD Code: R42 - DIZZINESS AND GIDDINESS Status: Acute Current Visit: Yes (4) Macrocytic anemia SNOMED Code(s): 49446144 ICD Code: D53.9 - NUTRITIONAL ANEMIA, UNSPECIFIED Status: Acute Current Visit: Yes Problem List Initiated/Reviewed/Updated: Yes Orders Last 24hrs: Active Orders 24 hr Category Date Time Status Admission Diagnosis [ADT] Stat ADT 01/09/21 22:56 Ordered Admission Status [Patient Status] [ADT] Routine ADT 01/09/21 22:56 Active Verify Patient Consent Obtain [RC] ASDIRECTED Care 01/09/21 20:59 Active DRUG SCREEN URINE BIORAD [URCHEM] Urgent Lab 01/09/21 19:54 Ordered FOLIC ACID [CHEM] Routine Lab 01/09/21 23:53 Ordered HAPTOGLOBIN [REF] Routine Lab 01/09/21 23:53 Ordered IRON,FE [CHEM] Routine Lab 01/09/21 23:53 Ordered LACTATE DEHYDROGENASE,LDH [CHEM] Routine Lab 01/09/21 23:52 Ordered RED BLOOD CELLS LP [BBK] Stat Lab 01/09/21 20:05 Results RETICULOCYTE COUNT [HEME] Routine Lab 01/09/21 23:52 Ordered TOTAL IRON BINDING CAPACITY [CHEM] Routine Lab 01/09/21 23:53 Ordered TYPE AND SCREEN [BBK] Stat Lab 01/09/21 20:05 Results UA RFX JOSE AND CULT IF INDIC [URIN] Stat Lab 01/09/21 19:54 Ordered VITAMIN B12 [CHEM] Routine Lab 01/09/21 23:53 Ordered Transfuse Red Blood Cells [COMM] Stat Oth 01/09/21 20:59 Ordered Assessment/Plan Comment:: Anemia Likely subacute No evidence of acute gi bleed - occult blood negative Eval for hemolysis Check ldh, peripheral smear, haptoglobin, retic count Check iron, b12, folate no significant lymphadenopathy on CT CAP Transfuse 2 u prbc - started in ER Recheck hgb in am Dvt prophylaxis with paramjit stocking
[2021-01-09] MEDS ORDERED: Acetaminophen 325 MG Tab PO PRN (23:59)
[2021-01-09] MEDS ORDERED: Sodium Chloride 0.9% 10 ML Syringe FLUSH PRN (23:59)
[2021-01-09] MEDS ORDERED: Zolpidem 5 MG Tab PO PRN (23:59)
[2021-01-09] MEDS ORDERED: Ondansetron 4 MG Tab.DIS PO PRN (23:59)
[2021-01-09] MEDS ORDERED: Acetaminophen/HYDROcodone 325-10 MG Tab PO PRN (23:59)
[2021-01-10] MEDS ORDERED: Calcium Carbonate 500 MG Tab.Chew PO PRN (00:14)
[2021-01-10] MEDS: Pantoprazole 40 MG Tab.CR PO SCH ×2 (00:31→06:07)
[2021-01-10 05:15] LABS: BENZODIAZEPINE,URINE NEGATIVE (NEGATIVE); MDMA (ECSTASY), URINE NEGATIVE (NEGATIVE); METHADONE,URINE NEGATIVE (NEGATIVE); METHAMPHETAMINES,URINE NEGATIVE (NEGATIVE); OPIATES,URINE NEGATIVE (NEGATIVE)
[2021-01-10 05:16] LABS: AMPHETAMINES,URINE NEGATIVE (NEGATIVE); BARBITURATES,URINE NEGATIVE (NEGATIVE); OXYCODONE,URINE NEGATIVE (NEGATIVE); PHENCYCLIDINE,URINE NEGATIVE (NEGATIVE); TCA,URINE NEGATIVE (NEGATIVE)
[2021-01-10] MEDS ORDERED: Pantoprazole 40 MG Tab.CR PO SCH (06:00)
[2021-01-10 06:32] LABS: ANION GAP 13.6 mEq/L (7-13); CHLORIDE,CL 102 mmol/L (98-107); SODIUM,NA 137 mmol/L (136-145)
--- NOTE | 2021-01-10 09:56 | PCM.DCSUM1 ---
Discharge Summary - Hospital Course Free Text/Narrative:: presented with near syncope, orthostatic hypotension symptoms noted to have severe anemia with hgb 6 no sign or symptoms of bleeding, occult blood was negative ldh was elevated with high indirect bilirubin - follow retic, haptoglobin, peripheral smear pending noted high MCV, normal iron, b12 but low folate - started supplement received 2 u PRBC tx. symptoms resolved hgb up to 7.1 will follow up with pmd in a few days to recheck hgb will follow up with hematology on 01/18/[address] [place] [address] Carrillo at 13:00 Diagnosis: Stroke: No - Discharge Data Discharge Date: 01/10/21 Discharge Disposition: Home, Self-Care 01 Condition: Stable - Referral to Home Health Primary Care Physician: PCP None - Discharge Diagnosis/Problem(s) (1) Near syncope SNOMED Code(s): 764522163 ICD Code: R55 - SYNCOPE AND COLLAPSE Status: Acute Current Visit: Yes (2) Orthostatic hypotension SNOMED Code(s): 33538974 ICD Code: I95.1 - ORTHOSTATIC HYPOTENSION Status: Acute Current Visit: Yes (3) Orthostatic dizziness SNOMED Code(s): 989287944 ICD Code: R42 - DIZZINESS AND GIDDINESS Status: Acute Current Visit: Yes (4) Macrocytic anemia SNOMED Code(s): 94458622 ICD Code: D53.9 - NUTRITIONAL ANEMIA, UNSPECIFIED Status: Acute Current Visit: Yes - Patient Instructions Diet: Usual Diet as Tolerated - Discharge Plan *PRESCRIPTION DRUG MONITORING PROGRAM REVIEWED*: Not Applicable *COPY OF PRESCRIPTION DRUG MONITORING REPORT IN PATIENT FRANKLYN: Not Applicable Prescriptions/Med Rec: Folic Acid 1 mg PO DAILY #30 tablet Multivitamins/Minerals [Vitamins and Minerals] 1 tab PO WITHBREAKFAST #30 tablet Home Medications: Home Meds Folic Acid 1 mg PO DAILY #30 tablet 01/10/21 [Rx] Multivitamins/Minerals [Vitamins and Minerals] 1 tab PO WITHBREAKFAST #30 tablet 01/10/21 [Rx] Oxygen Therapy Mode: Room Air Forms: ED Department Discharge Referrals: PCP,None [Primary Care Provider] - (establish new pmd f[facility] Carrillo) - Discharge Summary/Plan Comment DC Time >30 min.: Yes (called [facility] to set up appt) Total # of Minutes for Discharge Time: 35 min - General Info Date of Service: 01/10/21 Admission Dx/Problem (Free Text: Admission Diagnosis/Problem Admission Diagnosis/Problem Anemia Functional Status: Reports: Tolerating Diet, Ambulating - Review of Systems General: Denies: Fever Pulmonary: Denies: Shortness of Breath Cardiovascular: Denies: Chest Pain, Edema Gastrointestinal: Denies: Abdominal Pain Genitourinary: Denies: Dysuria Neurological: Denies: Confusion - Patient Data Vitals - Most Recent: Last Vital Signs Temp 97.1 F 01/10/21 07:31 Pulse 78 01/10/21 07:31 Resp 18 01/10/21 07:31 BP 110/48 L 01/10/21 07:31 Pulse Ox 99 01/10/21 07:31 Weight - Most Recent: 270 lb 3.2 oz I&O - Last 24 hours: Intake & Output 01/09/21 01/10/21 01/10/21 22:59 06:59 14:59 Intake Total 28 1142 360 Balance 28 1142 360 Lab Results - Last 24 hrs: Laboratory Results - last 24 hr 01/09/21 01/09/21 01/09/21 Range/Units 19:57 20:05 20:05 WBC 8.5 (5.0-10.0) 10^3/uL RBC 1.49 L (4.6-6.2) 10^6/uL Hgb 6.0 L* D (14.0-18.0) g/dL Hct 17.8 L* (40.0-54.0) % MCV 119.5 H D (80-100) fL MCH 40.3 H (27.0-34.0) pg MCHC 33.7 (33.0-35.0) g/dL Plt Count 325 (150-450) 10^3/uL Neut % (Auto) 74.6 (42.2-75.2) % Lymph % (Auto) 17.5 L (20.5-50.1) % Dickinson % (Auto) 4.7 (2-8) % Eos % (Auto) 2.6 (1.0-3.0) % Baso % (Auto) 0.6 (0.0-1.0) % Sodium 139 (136-145) mmol/L Potassium 3.9 (3.5-5.1) mmol/L Chloride 101 (98-107) mmol/L Carbon Dioxide 27 (21-32) mmol/L Anion Gap 14.9 H (7-13) mEq/L BUN 10 (7-18) mg/dL Creatinine 0.95 (0.70-1.30) mg/dL Est Cr Clr Drug Dosing 128.48 mL/min Estimated GFR (MDRD) > 60 BUN/Creatinine Ratio 10.5 (No establ ref range) Glucose 119 H (70-99) mg/dL Lactic Acid (0.4-2.0) mmol/L Calcium 8.7 (8.5-10.1) mg/dL Magnesium 1.5 L (1.8-2.4) mg/dL Iron (65-175) ug/dL TIBC Total Bilirubin 1.5 H (0.2-1.0) mg/dL Direct Bilirubin (0.0-0.2) mg/dL AST 79 H (15-37) U/L ALT 52 (16-63) U/L Alkaline Phosphatase 78 (46-116) U/L Ammonia (11-32) umol/L Lactate Dehydrogenase (85-227) U/L Troponin I High Sens 6 (<=76) pg/mL C-Reactive Protein 2.9 H (0.0-0.9) mg/dL B-Natriuretic Peptide 111 H (0-100) pg/ml Total Protein 7.4 (6.4-8.2) g/dL Albumin 3.3 L (3.4-5.0) g/dL Globulin 4.1 Albumin/Globulin Ratio 0.80 Amylase 34 (25-115) U/L Lipase 131 (73-393) U/L Vitamin B12 (193-986) pg/mL Folate (8.6-58.9) ng/mL Urine Color (YELLOW) Urine Appearance (CLEAR) Urine pH (5.0-9.0) Ur Specific [place] (1.005-1.030) Urine Protein (NEGATIVE) Urine Glucose (UA) (NEGATIVE) Urine Ketones (NEGATIVE) Urine Occult Blood (NEGATIVE) Urine Nitrite (NEGATIVE) Urine Bilirubin (NEGATIVE) Urine Urobilinogen (0.2-1.0) mg/dL Ur Leukocyte Esterase (NEGATIVE) Urine RBC (0-5) /HPF Urine WBC (0-5/HPF) /HPF Ur Epithelial Cells (NOT SEEN) /HPF Urine Bacteria (0-FEW/HPF) /HPF Urine Opiates Screen (NEGATIVE) Ur Oxycodone Screen (NEGATIVE) Urine Methadone Screen (NEGATIVE) Ur Barbiturates Screen (NEGATIVE) U Tricyclic Antidepress (NEGATIVE) Ur Phencyclidine Scrn (NEGATIVE) Ur Amphetamine Screen (NEGATIVE) U Methamphetamines Scrn (NEGATIVE) Urine MDMA Screen (NEGATIVE) U Benzodiazepines Scrn (NEGATIVE) Urine Cocaine Screen (NEGATIVE) U Marijuana (THC) Screen (NEGATIVE) Ethyl Alcohol < 3 (0) mg/dL Influenza Type A RNA Negative (NEGATIVE) Influenza Type B RNA Negative (NEGATIVE) SARS-CoV-2 RNA (JEN) Negative (NEGATIVE) Blood Type Gel Antibody Screen Crossmatch 01/09/21 01/09/21 01/09/21 Range/Units 20:05 20:05 20:05 WBC (5.0-10.0) 10^3/uL RBC (4.6-6.2) 10^6/uL Hgb (14.0-18.0) g/dL Hct (40.0-54.0) % MCV (80-100) fL MCH (27.0-34.0) pg MCHC (33.0-35.0) g/dL Plt Count (150-450) 10^3/uL Neut % (Auto) (42.2-75.2) % Lymph % (Auto) (20.5-50.1) % Dickinson % (Auto) (2-8) % Eos % (Auto) (1.0-3.0) % Baso % (Auto) (0.0-1.0) % Sodium (136-145) mmol/L Potassium (3.5-5.1) mmol/L Chloride (98-107) mmol/L Carbon Dioxide (21-32) mmol/L Anion Gap (7-13) mEq/L BUN (7-18) mg/dL Creatinine (0.70-1.30) mg/dL Est Cr Clr Drug Dosing mL/min Estimated GFR (MDRD) BUN/Creatinine Ratio (No establ ref range) Glucose (70-99) mg/dL Lactic Acid 1.9 (0.4-2.0) mmol/L Calcium (8.5-10.1) mg/dL Magnesium (1.8-2.4) mg/dL Iron (65-175) ug/dL TIBC Total Bilirubin (0.2-1.0) mg/dL Direct Bilirubin (0.0-0.2) mg/dL AST (15-37) U/L ALT (16-63) U/L Alkaline Phosphatase (46-116) U/L Ammonia 18 (11-32) umol/L Lactate Dehydrogenase (85-227) U/L Troponin I High Sens (<=76) pg/mL C-Reactive Protein (0.0-0.9) mg/dL B-Natriuretic Peptide (0-100) pg/ml Total Protein (6.4-8.2) g/dL Albumin (3.4-5.0) g/dL Globulin Albumin/Globulin Ratio Amylase (25-115) U/L Lipase (73-393) U/L Vitamin B12 (193-986) pg/mL Folate (8.6-58.9) ng/mL Urine Color (YELLOW) Urine Appearance (CLEAR) Urine pH (5.0-9.0) Ur Specific [place] (1.005-1.030) Urine Protein (NEGATIVE) Urine Glucose (UA) (NEGATIVE) Urine Ketones (NEGATIVE) Urine Occult Blood (NEGATIVE) Urine Nitrite (NEGATIVE) Urine Bilirubin (NEGATIVE) Urine Urobilinogen (0.2-1.0) mg/dL Ur Leukocyte Esterase (NEGATIVE) Urine RBC (0-5) /HPF Urine WBC (0-5/HPF) /HPF Ur Epithelial Cells (NOT SEEN) /HPF Urine Bacteria (0-FEW/HPF) /HPF Urine Opiates Screen (NEGATIVE) Ur Oxycodone Screen (NEGATIVE) Urine Methadone Screen (NEGATIVE) Ur Barbiturates Screen (NEGATIVE) U Tricyclic Antidepress (NEGATIVE) Ur Phencyclidine Scrn (NEGATIVE) Ur Amphetamine Screen (NEGATIVE) U Methamphetamines Scrn (NEGATIVE) Urine MDMA Screen (NEGATIVE) U Benzodiazepines Scrn (NEGATIVE) Urine Cocaine Screen (NEGATIVE) U Marijuana (THC) Screen (NEGATIVE) Ethyl Alcohol (0) mg/dL Influenza Type A RNA (NEGATIVE) Influenza Type B RNA (NEGATIVE) SARS-CoV-2 RNA (JEN) (NEGATIVE) Blood Type O POSITIVE Gel Antibody Screen Negative Crossmatch See Detail 01/09/21 01/09/21 01/09/21 Range/Units 20:05 20:05 20:05 WBC (5.0-10.0) 10^3/uL RBC (4.6-6.2) 10^6/uL Hgb (14.0-18.0) g/dL Hct (40.0-54.0) % MCV (80-100) fL MCH (27.0-34.0) pg MCHC (33.0-35.0) g/dL Plt Count (150-450) 10^3/uL Neut % (Auto) (42.2-75.2) % Lymph % (Auto) (20.5-50.1) % Dickinson % (Auto) (2-8) % Eos % (Auto) (1.0-3.0) % Baso % (Auto) (0.0-1.0) % Sodium (136-145) mmol/L Potassium (3.5-5.1) mmol/L Chloride (98-107) mmol/L Carbon Dioxide (21-32) mmol/L Anion Gap (7-13) mEq/L BUN (7-18) mg/dL Creatinine (0.70-1.30) mg/dL Est Cr Clr Drug Dosing mL/min Estimated GFR (MDRD) BUN/Creatinine Ratio (No establ ref range) Glucose (70-99) mg/dL Lactic Acid (0.4-2.0) mmol/L Calcium (8.5-10.1) mg/dL Magnesium (1.8-2.4) mg/dL Iron (65-175) ug/dL TIBC Cancelled 287 Total Bilirubin (0.2-1.0) mg/dL Direct Bilirubin 0.4 H (0.0-0.2) mg/dL AST (15-37) U/L ALT (16-63) U/L Alkaline Phosphatase (46-116) U/L Ammonia (11-32) umol/L Lactate Dehydrogenase 849 H (85-227) U/L Troponin I High Sens (<=76) pg/mL C-Reactive Protein (0.0-0.9) mg/dL B-Natriuretic Peptide (0-100) pg/ml Total Protein (6.4-8.2) g/dL Albumin (3.4-5.0) g/dL Globulin Albumin/Globulin Ratio Amylase (25-115) U/L Lipase (73-393) U/L Vitamin B12 501 (193-986) pg/mL Folate < 0.5 L (8.6-58.9) ng/mL Urine Color (YELLOW) Urine Appearance (CLEAR) Urine pH (5.0-9.0) Ur Specific [place] (1.005-1.030) Urine Protein (NEGATIVE) Urine Glucose (UA) (NEGATIVE) Urine Ketones (NEGATIVE) Urine Occult Blood (NEGATIVE) Urine Nitrite (NEGATIVE) Urine Bilirubin (NEGATIVE) Urine Urobilinogen (0.2-1.0) mg/dL Ur Leukocyte Esterase (NEGATIVE) Urine RBC (0-5) /HPF Urine WBC (0-5/HPF) /HPF Ur Epithelial Cells (NOT SEEN) /HPF Urine Bacteria (0-FEW/HPF) /HPF Urine Opiates Screen (NEGATIVE) Ur Oxycodone Screen (NEGATIVE) Urine Methadone Screen (NEGATIVE) Ur Barbiturates Screen (NEGATIVE) U Tricyclic Antidepress (NEGATIVE) Ur Phencyclidine Scrn (NEGATIVE) Ur Amphetamine Screen (NEGATIVE) U Methamphetamines Scrn (NEGATIVE) Urine MDMA Screen (NEGATIVE) U Benzodiazepines Scrn (NEGATIVE) Urine Cocaine Screen (NEGATIVE) U Marijuana (THC) Screen (NEGATIVE) Ethyl Alcohol (0) mg/dL Influenza Type A RNA (NEGATIVE) Influenza Type B RNA (NEGATIVE) SARS-CoV-2 RNA (JEN) (NEGATIVE) Blood Type Gel Antibody Screen Crossmatch 01/09/21 01/10/21 01/10/21 Range/Units 20:05 04:30 04:30 WBC (5.0-10.0) 10^3/uL RBC (4.6-6.2) 10^6/uL Hgb (14.0-18.0) g/dL Hct (40.0-54.0) % MCV (80-100) fL MCH (27.0-34.0) pg MCHC (33.0-35.0) g/dL Plt Count (150-450) 10^3/uL Neut % (Auto) (42.2-75.2) % Lymph % (Auto) (20.5-50.1) % Dickinson % (Auto) (2-8) % Eos % (Auto) (1.0-3.0) % Baso % (Auto) (0.0-1.0) % Sodium (136-145) mmol/L Potassium (3.5-5.1) mmol/L Chloride (98-107) mmol/L Carbon Dioxide (21-32) mmol/L Anion Gap (7-13) mEq/L BUN (7-18) mg/dL Creatinine (0.70-1.30) mg/dL Est Cr Clr Drug Dosing mL/min Estimated GFR (MDRD) BUN/Creatinine Ratio (No establ ref range) Glucose (70-99) mg/dL Lactic Acid (0.4-2.0) mmol/L Calcium (8.5-10.1) mg/dL Magnesium (1.8-2.4) mg/dL Iron 176 H (65-175) ug/dL TIBC Total Bilirubin (0.2-1.0) mg/dL Direct Bilirubin (0.0-0.2) mg/dL AST (15-37) U/L ALT (16-63) U/L Alkaline Phosphatase (46-116) U/L Ammonia (11-32) umol/L Lactate Dehydrogenase (85-227) U/L Troponin I High Sens (<=76) pg/mL C-Reactive Protein (0.0-0.9) mg/dL B-Natriuretic Peptide (0-100) pg/ml Total Protein (6.4-8.2) g/dL Albumin (3.4-5.0) g/dL Globulin Albumin/Globulin Ratio Amylase (25-115) U/L Lipase (73-393) U/L Vitamin B12 (193-986) pg/mL Folate (8.6-58.9) ng/mL Urine Color Yellow (YELLOW) Urine Appearance Clear (CLEAR) Urine pH 8.0 (5.0-9.0) Ur Specific [place] 1.015 (1.005-1.030) Urine Protein Negative (NEGATIVE) Urine Glucose (UA) Negative (NEGATIVE) Urine Ketones Trace H (NEGATIVE) Urine Occult Blood Trace-intact H (NEGATIVE) Urine Nitrite Negative (NEGATIVE) Urine Bilirubin Negative (NEGATIVE) Urine Urobilinogen 1.0 (0.2-1.0) mg/dL Ur Leukocyte Esterase Negative (NEGATIVE) Urine RBC 0-5 (0-5) /HPF Urine WBC 0-5 (0-5/HPF) /HPF Ur Epithelial Cells Few (NOT SEEN) /HPF Urine Bacteria Few (0-FEW/HPF) /HPF Urine Opiates Screen Negative (NEGATIVE) Ur Oxycodone Screen Negative (NEGATIVE) Urine Methadone Screen Negative (NEGATIVE) Ur Barbiturates Screen Negative (NEGATIVE) U Tricyclic Antidepress Negative (NEGATIVE) Ur Phencyclidine Scrn Negative (NEGATIVE) Ur Amphetamine Screen Negative (NEGATIVE) U Methamphetamines Scrn Negative (NEGATIVE) Urine MDMA Screen Negative (NEGATIVE) U Benzodiazepines Scrn Negative (NEGATIVE) Urine Cocaine Screen Negative (NEGATIVE) U Marijuana (THC) Screen Positive H (NEGATIVE) Ethyl Alcohol (0) mg/dL Influenza Type A RNA (NEGATIVE) Influenza Type B RNA (NEGATIVE) SARS-CoV-2 RNA (JEN) (NEGATIVE) Blood Type Gel Antibody Screen Crossmatch 01/10/21 01/10/21 Range/Units 05:30 05:30 WBC 9.4 (5.0-10.0) 10^3/uL RBC 1.94 L (4.6-6.2) 10^6/uL Hgb 7.1 L (14.0-18.0) g/dL Hct 21.2 L (40.0-54.0) % MCV 109.3 H D (80-100) fL MCH 36.6 H (27.0-34.0) pg MCHC 33.5 (33.0-35.0) g/dL Plt Count 275 (150-450) 10^3/uL Neut % (Auto) 73.5 (42.2-75.2) % Lymph % (Auto) 18.3 L (20.5-50.1) % Dickinson % (Auto) 4.7 (2-8) % Eos % (Auto) 3.1 H (1.0-3.0) % Baso % (Auto) 0.4 (0.0-1.0) % Sodium 137 (136-145) mmol/L Potassium 3.6 (3.5-5.1) mmol/L Chloride 102 (98-107) mmol/L Carbon Dioxide 25 (21-32) mmol/L Anion Gap 13.6 H (7-13) mEq/L BUN 8 (7-18) mg/dL Creatinine 0.72 (0.70-1.30) mg/dL Est Cr Clr Drug Dosing 169.52 mL/min Estimated GFR (MDRD) > 60 BUN/Creatinine Ratio (No establ ref range) Glucose 112 H (70-99) mg/dL Lactic Acid (0.4-2.0) mmol/L Calcium 8.3 L (8.5-10.1) mg/dL Magnesium (1.8-2.4) mg/dL Iron (65-175) ug/dL TIBC Total Bilirubin (0.2-1.0) mg/dL Direct Bilirubin (0.0-0.2) mg/dL AST (15-37) U/L ALT (16-63) U/L Alkaline Phosphatase (46-116) U/L Ammonia (11-32) umol/L Lactate Dehydrogenase (85-227) U/L Troponin I High Sens (<=76) pg/mL C-Reactive Protein (0.0-0.9) mg/dL B-Natriuretic Peptide (0-100) pg/ml Total Protein (6.4-8.2) g/dL Albumin (3.4-5.0) g/dL Globulin Albumin/Globulin Ratio Amylase (25-115) U/L Lipase (73-393) U/L Vitamin B12 (193-986) pg/mL Folate (8.6-58.9) ng/mL Urine Color (YELLOW) Urine Appearance (CLEAR) Urine pH (5.0-9.0) Ur Specific [place] (1.005-1.030) Urine Protein (NEGATIVE) Urine Glucose (UA) (NEGATIVE) Urine Ketones (NEGATIVE) Urine Occult Blood (NEGATIVE) Urine Nitrite (NEGATIVE) Urine Bilirubin (NEGATIVE) Urine Urobilinogen (0.2-1.0) mg/dL Ur Leukocyte Esterase (NEGATIVE) Urine RBC (0-5) /HPF Urine WBC (0-5/HPF) /HPF Ur Epithelial Cells (NOT SEEN) /HPF Urine Bacteria (0-FEW/HPF) /HPF Urine Opiates Screen (NEGATIVE) Ur Oxycodone Screen (NEGATIVE) Urine Methadone Screen (NEGATIVE) Ur Barbiturates Screen (NEGATIVE) U Tricyclic Antidepress (NEGATIVE) Ur Phencyclidine Scrn (NEGATIVE) Ur Amphetamine Screen (NEGATIVE) U Methamphetamines Scrn (NEGATIVE) Urine MDMA Screen (NEGATIVE) U Benzodiazepines Scrn (NEGATIVE) Urine Cocaine Screen (NEGATIVE) U Marijuana (THC) Screen (NEGATIVE) Ethyl Alcohol (0) mg/dL Influenza Type A RNA (NEGATIVE) Influenza Type B RNA (NEGATIVE) SARS-CoV-2 RNA (JEN) (NEGATIVE) Blood Type Gel Antibody Screen Crossmatch FRANCES Results - Last 24 hrs: Microbiology 01/09/21 22:25 Stool Occult Blood (FRANCES) - Final Stool / Feces NEGATIVE OCCULT BLOOD REFERENCE RANGE: NEGATIVE Med Orders - Current: Current Medications Acetaminophen (Acetaminophen 325 Mg Tab) 650 mg PO Q4H PRN PRN Reason: Pain (Mild 1-3)/fever Hydrocodone Bitart/Acetaminophen (Acetaminophen/Hydrocodone 325-10 Mg Tab) 1 tab PO Q4H PRN PRN Reason: Pain (moderate 4-6) Calcium Carbonate/Glycine (Calcium Carbonate 500 Mg Tab.Chew) 500 mg PO Q4H PRN PRN Reason: Heartburn Folic Acid (Folic Acid 1 Mg Tab) 1 mg PO DAILY VALE Multivitamins/Minerals (Multivitamins, Therapeutic With Minerals Tab) 1 tab PO WITHBREAKFAST VALE Ondansetron HCl (Ondansetron 4 Mg Tab.Dis) 4 mg PO Q4H PRN PRN Reason: nausea, able to take PO Pantoprazole Sodium (Pantoprazole 40 Mg Tab.Cr) 40 mg PO BIDAC VALE Last Admin: 01/10/21 06:07 Dose: 40 mg Documented by: Sodium Chloride (Sodium Chloride 0.9% 10 Ml Syringe) 10 ml FLUSH ASDIRECTED PRN PRN Reason: Keep Vein Open Zolpidem Tartrate (Zolpidem 5 Mg Tab) 5 mg PO BEDTIME PRN PRN Reason: Sleep Last Admin: 01/10/21 00:49 Dose: 5 mg Documented by: Discontinued Medications Magnesium Sulfate 2 gm/ Premix 50 mls @ 25 mls/hr IV ONETIME ONE Stop: 01/09/21 23:20 Last Admin: 01/09/21 22:03 Dose: 25 mls/hr Documented by: Iopamidol (Iopamidol 612 Mg/Ml 50 Ml Sdv) 50 ml IVPUSH ONETIME ONE Stop: 01/09/21 21:08 Last Admin: 01/09/21 21:22 Dose: 25 ml Documented by: Iopamidol (Iopamidol 612 Mg/Ml 100 Ml Bottle) 100 ml IVPUSH ONETIME ONE Stop: 01/09/21 21:08 Last Admin: 01/09/21 21:22 Dose: 100 ml Documented by: Pantoprazole Sodium (Pantoprazole 40 Mg Tab.Cr) 40 mg PO BIDAC VALE - Exam Quality Assessment: Denies: Supplemental Oxygen General: Reports: Alert, Oriented Neck: Reports: Supple Lungs: Reports: Clear to Auscultation, Normal Respiratory Effort Cardiovascular: Reports: Regular Rate, Regular Rhythm GI/Abdominal Exam: Normal Bowel Sounds, Soft, Non-Tender Skin: Reports: Warm, Dry Psy/Mental Status: Reports: Alert, Normal Affect, Normal Mood *Q Meaningful Use (DIS) - VTE *Q VTE Anticoagulation Contraindications: Medical/Procedure Contrai
[2021-01-10] MEDS ORDERED: Folic Acid 1 MG Tab PO SCH (10:00)
[2021-01-10 11:45] VITALS: BP 113/58; PULSE 74
[2021-01-11] MEDS ORDERED: Multivitamins, Therapeutic with Minerals Tab PO SCH (10:00)
== END 2021-01-10 12:35 | disposition home or self-care (01) ==
LOC: DL.ED 19:42 → DL.MS 22:56
PROVIDERS: ADMIT Internal Medicine; ATTEND Internal Medicine
DX: D53.9 Nutritional anemia, unspecified (principal); I95.1 Orthostatic hypotension; R53.1 Weakness; F17.210 Nicotine dependence, cigarettes, uncomplicated; Z90.49 Acquired absence of other specified parts of digestive tract; Z98.890 Other specified postprocedural states; Z20.822 Contact with and (suspected) exposure to COVID-19
CPT/HCPCS: 0240U; 36415; 36430; 71260; 74177; 80048; 80053; 80305; 80307; 81001; 82140; 82150; 82248; 82272; 82607; 82746; 83010; 83540; 83550; 83605; 83615; 83690; 83735; 83880; 84484; 85008; 85025; 85045; 86140; 86850; 86900; 86901; 86920; 86922; 93005; 96365; 99285; A9270; G0378; J3475; P9016; Q9967

== ENCOUNTER 2023-09-30 07:04 | Emergency (ER) | payer OTHER ==
[2023-09-30 07:25] LABS: HEMATOCRIT 37.1 % (40.0-54.0); HEMOGLOBIN 12.6 g/dL (14.0-18.0); MEAN CORPUSCULAR HEMOGLOBIN 41.7 pg (27.0-34.0); MEAN CORPUSCULAR VOLUME 122.8 fL (80-100); PLATELET COUNT,PLT 343 10^3/uL (150-450); RED BLOOD CELL COUNT 3.02 10^6/uL (4.6-6.2); WHITE BLOOD CELL COUNT,WBC 15.4 10^3/uL (5.0-10.0)
[2023-09-30 07:36] LABS: BASOPHILS PERCENT AUTO 0.4 % (0.0-1.0); EOSINOPHILS PERCENT AUTO 2.8 % (1.0-3.0); MONOCYTES PERCENT AUTO 7.6 % (2-8); NEUTROPHILS PERCENT AUTO 77.2 % (42.2-75.2)
[2023-09-30] MEDS: Iopamidol 612 MG/ML 100 ML Bottle IVPUSH ONE (07:37)
[2023-09-30] MEDS: cefTRIAXone 1 GM Vial IVPUSH ONE (07:44)
[2023-09-30 07:48] LABS: LACTIC ACID 0.8 mmol/L (0.4-2.0)
[2023-09-30 07:50] LABS: SEG NEUTROPHILS PERCENT MAN 77 % (42-75)
[2023-09-30 07:51] LABS: EOSINOPHILS PERCENT MAN 3 % (1-3); LYMPHOCYTES PERCENT MAN 16 % (20-50); MONOCYTES PERCENT MAN 4 % (2-8); NRBC MANUAL 2 /100WBC
[2023-09-30 07:54] LABS: ALBUMIN 3.1 g/dL (3.4-5.0); ANION GAP 8.4 mEq/L (7-13); BILIRUBIN TOTAL 1.4 mg/dL (0.2-1.0); BUN/CREATININE RATIO 10.4 (No establ ref range); C-REACTIVE PROTEIN 2.41 ng/dL (<=0.50); CALCIUM 8.7 mg/dL (8.5-10.1); CREATININE 0.67 mg/dL (0.70-1.30); EST CRCL DRUG DOSING (CG) 181.73 mL/min; POTASSIUM,K 4.4 mmol/L (3.5-5.1)
[2023-09-30 07:56] LABS: A/G RATIO 0.63
[2023-09-30 08:07] VITALS: BP 132/90; PULSE 73
[2023-09-30] MEDS: Ketorolac 30 MG/ML SDV IVPUSH ONE (08:14)
== END 2023-09-30 09:05 | disposition home or self-care (01) ==
LOC: DL.ED 07:04
DX: K04.7 Periapical abscess without sinus (principal); K03.81 Cracked tooth; E87.1 Hypo-osmolality and hyponatremia; D53.9 Nutritional anemia, unspecified; Z79.899 Other long term (current) drug therapy; Z91.048 Other nonmedicinal substance allergy status
CPT/HCPCS: 36415; 70487; 80053; 83605; 85025; 86140; 96374; 96375; 99284; J0696; J1885; Q9967

== ENCOUNTER 2024-04-11 18:14 | Emergency (ER) | payer SELFPAY ==
[2024-04-11 19:01] LABS: BASOPHILS PERCENT AUTO 0.9 % (0.0-1.0); EOSINOPHILS PERCENT AUTO 4.3 % (1.0-3.0); HEMOGLOBIN 7.5 g/dL (14.0-18.0); LYMPHOCYTES PERCENT AUTO 15.4 % (20.5-50.1); MEAN CORPUSCULAR HEMOGLOBIN 44.4 pg (27.0-34.0); MEAN CORPUSCULAR HGB CONC 34.1 g/dL (33.0-35.0); MEAN CORPUSCULAR VOLUME 130.2 fL (80-100); MONOCYTES PERCENT AUTO 4.5 % (2-8); NEUTROPHILS PERCENT AUTO 74.9 % (42.2-75.2); PLATELET COUNT,PLT 203 10^3/uL (150-450); RED BLOOD CELL COUNT 1.69 10^6/uL (4.6-6.2); WHITE BLOOD CELL COUNT,WBC 5.8 10^3/uL (5.0-10.0)
[2024-04-11 19:03] VITALS: PULSE 93
[2024-04-11] MEDS: Sodium Chloride 0.9% 1,000 ML IV SCH (19:04)
[2024-04-11 19:20] LABS: INR 1.2 (0.9-1.2); PROTHROMBIN TIME 12.7 SEC (9.0-12.0)
[2024-04-11 19:32] LABS: ALANINE AMINOTRANSFERASE,ALT 20 U/L (16-63); ALBUMIN 2.6 g/dL (3.4-5.0); ALKALINE PHOSPHATASE 150 U/L (46-116); ANION GAP 15.7 mEq/L (7-13); ASPARTATE AMNIOTRANSFERASE,AST 102 U/L (15-37); BILIRUBIN DIRECT 0.6 mg/dL (0.0-0.2); BILIRUBIN TOTAL 1.6 mg/dL (0.2-1.0); BLOOD UREA NITROGEN,BUN 10 mg/dL (7-18); CALCIUM 8.5 mg/dL (8.5-10.1); CARBON DIOXIDE,CO2 26 mmol/L (21-32); CHLORIDE,CL 99 mmol/L (98-107); CREATININE 1.01 mg/dL (0.70-1.30); ETHANOL BLOOD MEDICAL 5 mg/dL (0); GLUCOSE RANDOM 126 mg/dL (70-99); MAGNESIUM 1.2 mg/dL (1.8-2.4); POTASSIUM,K 3.7 mmol/L (3.5-5.1); PROTEIN TOTAL,TP 7.4 g/dL (6.4-8.2); SODIUM,NA 137 mmol/L (136-145)
[2024-04-11 19:47] LABS: A/G RATIO 0.54; ESTIMATED GFR 97 mL/min (>=60)
[2024-04-11] MEDS: Magnesium Sulfate/Water Premix 2 GM in Premix Bag 1 BAG IV ONE (20:22)
[2024-04-11 21:02] VITALS: BP 105/51
[2024-04-11 22:07] LABS: RETICULOCYTE COUNT PERCENT 1 % (0.5-1.5)
== END 2024-04-11 21:20 | disposition home or self-care (01) ==
LOC: DL.ED 18:14
DX: D62 Acute posthemorrhagic anemia (principal); E83.42 Hypomagnesemia; F10.10 Alcohol abuse, uncomplicated; E53.8 Deficiency of other specified B group vitamins; F17.210 Nicotine dependence, cigarettes, uncomplicated; Z91.048 Other nonmedicinal substance allergy status; Z79.899 Other long term (current) drug therapy; Y90.9 Presence of alcohol in blood, level not specified
CPT/HCPCS: 36415; 36430; 71045; 80048; 80076; 80307; 83735; 84484; 85025; 85045; 85610; 86850; 86900; 86901; 86920; 86922; 87040; 93005; 96361; 96365; 99285-25; J3475; J7030; P9016